=== PATIENT | male | born 2005 | race Two or more races ===

== ENCOUNTER 2024-01-22 18:59 | Emergency (ER) | payer MEDICAID, OTHER ==
[~2024-01-22] VITALS: Ht 165.1 cm; Wt 68.9 kg
[2024-01-22 19:24] LABS: Urine Bacteria None Seen /hpf (None Seen)
[2024-01-22 19:52] LABS: Urine Amorphous Crystal FEW /hpf (None Seen); Urine Blood Negative /uL (Negative); Urine Clarity Turbid (Clear); Urine Color Yellow (Yellow); Urine Mucus FEW (None Seen); Urine Protein, UAD Negative (Negative); Urine Specific Gravity 1.029 (1.001-1.035); Urine Urobilinogen Normal (Negative); Urine WBC 2 /hpf (0 - 3)
[2024-01-22] MEDS ORDERED: IBUP-1454 PO (22:00)
[2024-01-22 22:35] VITALS: BP 123/87; PULSE 65; RESP 19; TEMP 98; O2SAT 100
== END 2024-01-22 22:01 | disposition home or self-care (01) ==
LOC: ER 18:59
DX: N43.3 Hydrocele, unspecified (principal); F17.210 Nicotine dependence, cigarettes, uncomplicated; Z88.6 Allergy status to analgesic agent; Z98.890 Other specified postprocedural states
CPT/HCPCS: 76870; 81001

== ENCOUNTER 2025-03-02 22:32 | Emergency (ER) | payer MEDICAID ==
[~2025-03-02] VITALS: Ht 167.6 cm; Wt 64.7 kg
[~2025-03-02 22:32] MED LIST: IBUP-1454 PO
--- NOTE | 2025-03-03 01:30 | ED.PDOC ---
History of Present Illness(SKN HPI Comments PT C/O UNKNOWN INSECT BITE TO L HIP EARLIER THIS MORNING. PT A&OX4, VSS, RR EVEN AND UNLABORED ON RA Chief Complaint: Insect Bite Time Seen by MD: 22:44 Primary Care Provider: NONE History of Present Illness: Nurses Notes, Medications, Allergies Allergies: Coded Allergies: NO KNOWN ALLERGIES (Unverified , 01/22/24) Home Meds Active Scripts Ibuprofen (Ibuprofen) 600 Mg Tab, 1 TAB PO TID, #30 TAB Prov:GEENA PALMA MD 01/22/24 Information Source: Patient Mode of Arrival: Ambulatory Past Medical History PAST MEDICAL HISTORY: Denies Surgical History: Hernia Repair Family History Family History: Reviewed,noncontributory to illness Social History Smoker: Cigarettes, Less Than 1 Pack/Day Alcohol: Occasionally Drugs: Denies Drug Use Lives In: Home Constitutional: denies: chills, diaphoresis, fatigue, fever, malaise, sweats, weakness, others EENTM: denies: blurred vision, double vision, ear bleeding, ear discharge, ear drainage, ear pain, ear ringing, eye pain, eye redness, hearing loss, mouth pain, mouth swelling, nasal discharge, nose bleeding, nose congestion, nose pain, photophobia, tearing, throat pain, throat swelling, voice changes, others Respiratory: denies: cough, hemoptysis, orthopnea, SOB at rest, shortness of breath, SOB with excertion, stridor, wheezing, others Cardiovascular: denies: chest pain, dizzy spells, diaphoresis, Dyspnea on exertion, edema, irregular heart beat, left arm pain, lightheadedness, palpitations, PND, syncope, others Gastrointestinal: denies: abdomen distended, abdominal pain, blood streaked bowels, constipated, diarrhea, dysphagia, difficulty swallowing, hematemesis, melena, nausea, poor appetite, poor fluid intake, rectal bleeding, rectal pain, vomiting, others Genitourinary: denies: burning, dysuria, flank pain, frequency, hematuria, incontinence, penile discharge, penile sore, pain, testicle pain, testicle swelling, urgency, others Neurological: denies: dizziness, fainting, headache, left sided numbness, left sided weakness, numbness, paresthesia, pre-existing deficit, right sided numbness, right sided weakness, seizure, speech problems, tingling, tremors, weakness, others Musculoskeletal: denies: back pain, gout, joint pain, joint swelling, muscle pain, muscle stiffness, neck pain, others Integumetry: reports: wounds (Left hip); denies: bruises, change in color, change in hair/nails, dryness, laceration, lesions, lumps, rash, others Allergic/Immunocompromised: denies: Difficulty Healing, Frequent Infections, Hives, Itching, others Hematologic/Lymphatic: denies: anemia, blood clots, easy bleeding, easy bruising, swollen glands, others Endocrine: denies: excessive hunger, excessive sweating, excessive thirst, excessive urination, flushing, intolerance to cold, intolerance to heat, unexplained weight gain, unexplained weight loss, others Psychiatric: denies: anxiety, bipolar disorder, depression, hopeless, panic disorder, schizophrenia, sleepless, suicidal, others Physical Exam General Appearance: No Apparent Distress, Normal HEENT: Pharynx Normal Neck: Full Range of Motion, Non-Tender Respiratory: Lungs Clear, No Respiratory Distress, Normal Breath Sounds Cardiovascular: No Edema, No JVD, No Murmur, No Gallop, Normal Peripheral Pulses, Regular Rate/Rhythm Breast Exam: Deferred Gastrointestinal: Non Tender, Soft Genitalia: Deferred Pelvic: Deferred Rectal: Deferred Extremities: Normal capillary refill, Normal inspection, Normal range of motion, Non-tender, No pedal edema Musculoskeletal : Apperance: Normal Neurologic: Alert, No Motor Deficits, Normal Affect, Normal Mood, No Sensory Deficits Cerebellar Function: Normal Reflexes: Normal Skin: Dry, Normal Color, Warm Lymphatic: No Adenopathy Was a procedure done? Was a procedure done?: No Differential Diagnosis (INTG) Differential Diagnosis: Cellulitis, Insect Envenomation, Puncture Wound X-Ray, Labs, Meds, VS Vital Signs Date Time Temp Pulse Resp B/P (MAP) Pulse Ox O2 Delivery O2 Flow Rate FiO2 03/02/25 22:50 98.1 64 20 127/57 99 98.1 Time of 1ST Reevaluation: 01:00 Reevaluation 1ST: Unchanged Patient Education/Counseling: Diagnosis, Treatment, Prognosis, Need For Follow Up Family Education/Counseling: No Family Present SEPSIS Sepsis Screen Date sepsis recognized/suspect: Mar 02, 2025 Time Sepsis recognized/suspect: 2253 Recent Procedure: No On Antibiotic Therapy: No Respiratory Rate >20: No Heart Rate >90: No Temp<36 C (96.8 F) or >38.3 C: No SBP <90 or MAP <65 mmHG: No New Acute Mental Status Change: No Is the patient on CPAP, BIPAP,: No Vital Signs Date Time Temp Pulse Resp B/P (MAP) Pulse Ox O2 Delivery O2 Flow Rate FiO2 03/02/25 22:50 98.1 64 20 127/57 99 98.1 Departure 1 Departure Time of Disposition: 01:29 Impression: Primary Impression: Bug bite Qualified Codes: W57.XXXA - Bitten or stung by nonvenomous insect and other nonvenomous arthropods, initial encounter Disposition: HOME / SELF CARE / HOMELESS Condition: Stable e-Prescriptions Ibuprofen (Ibuprofen) 800 Mg Tab 800 MG PO Q8HP PRN for 5 Days, #15 TAB Prov: NEEL DE LA TORRE 03/03/25 Doxycycline Hyclate (Doxycycline Hyclate) 100 Mg Cap 100 MG PO BID for 7 Days, #14 CAP Prov: NEEL DE LA TORRE 03/03/25 Discharged With: Relative (Mother) Critical Care Note Critical Care Time?: No Stability Stability form required: No NEEL DE LA TORRE Mar 03, 2025 01:30
[2025-03-03 01:33] VITALS: BP 125/73; TEMP 98.1
[2025-03-03] MEDS ORDERED: DOXY100C4 PO (01:33)
[2025-03-03] MEDS ORDERED: IBUP-1456 PO (01:33)
[2025-03-03] MEDS: KETOROLAC TROMETH 60MG/2ML VIAL IM ONE (01:58)
[2025-03-03] MEDS: OXYCODONE W/ ACETAMINOPHEN 5/325MG TABLET PO ONE (01:59)
[2025-03-03] MEDS: cefTRIAXone SOD 1,000 MG VL IM ONE (01:59)
[2025-03-03 02:12] VITALS: PULSE 58; RESP 14; O2SAT 98
== END 2025-03-03 02:13 | disposition home or self-care (01) ==
LOC: ER 22:32
DX: S70.262A Insect bite (nonvenomous), left hip, initial encounter (principal); F17.210 Nicotine dependence, cigarettes, uncomplicated; F10.90 Alcohol use, unspecified, uncomplicated; Z98.890 Other specified postprocedural states; Z79.1 Long term (current) use of non-steroidal anti-inflammatories (NSAID); Y90.9 Presence of alcohol in blood, level not specified; W57.XXXA Bitten or stung by nonvenomous insect and other nonvenomous arthropods, initial encounter; Y93.89 Activity, other specified; Y92.89 Other specified places as the place of occurrence of the external cause; Y99.8 Other external cause status
CPT/HCPCS: 96372; 99284; J0696; J1885